=== PATIENT | female | born 1950 | race Caucasian/White ===

== ENCOUNTER → 2016-11-20 | Outpatient (CLI) | payer BC ==
[~2016-11-20] MED LIST: CARDI-OMEGA1000 MG PO; CENTRUM SILVER1 TA2 PO; CEPHALEXIN500 M1 PO; CITRACAL + D 251 TAB PO; DOXYCYCLINE 10100 MG PO; GLUCOSAMINE MSM1 TAB PO; HCTZ12.5TAB PO; HYDROCOT25 MG PO; MEDI-FIRST ASP325 MG PO; PRINZIDE 12.5 M1 TAB PO; SIMVASTATIN40 MG PO; TINACTIN11 TP; ZOCOR 20MG20 MG PO; [UNRECOGNIZED DRUG - OTHER]
== END ==
LOC: MC.RAD 09:55
DX: Z12.31 Encounter for screening mammogram for malignant neoplasm of breast (principal)

== ENCOUNTER → 2018-05-06 | Outpatient (CLI) | payer MEDICARE, OTHER | LOC: MC.RAD 10:40 | DX: Z12.31 Encounter for screening mammogram for malignant neoplasm of breast (principal) ==

== ENCOUNTER → 2018-06-10 | Outpatient (CLI) | payer MEDICARE, OTHER ==
[~2018-06-10] MED LIST changes: +ASPIRIN E.C. 8181 MG PO; +CALCIUM 600/VIT1 CAP PO; -CITRACAL + D 251 TAB PO; +GLUCOSAMINE & C1 CA2 PO; +NATURE'S BLEND500 M1 PO
== END ==
LOC: COL.RAD 07:55
DX: C64.1 Malignant neoplasm of right kidney, except renal pelvis (principal); R91.8 Other nonspecific abnormal finding of lung field
CPT/HCPCS: Q9967

== ENCOUNTER → 2018-06-14 | Outpatient (CLI) | payer MEDICARE, OTHER ==
[2018-06-14] VITALS (9 sets, daily range): BP systolic 115–158; BP diastolic 64–87; PULSE 99–108
[~2018-06-14] VITALS: Ht 165.1 cm; Wt 87.0 kg
== END ==
LOC: COL.RAD 09:16
DX: C64.1 Malignant neoplasm of right kidney, except renal pelvis (principal); R91.8 Other nonspecific abnormal finding of lung field
CPT/HCPCS: A9585

== ENCOUNTER → 2018-09-14 | Outpatient (CLI) | payer MEDICARE, OTHER | LOC: COL.RAD 09:39 | DX: C64.1 Malignant neoplasm of right kidney, except renal pelvis (principal); C79.51 Secondary malignant neoplasm of bone; R59.0 Localized enlarged lymph nodes; R91.8 Other nonspecific abnormal finding of lung field | CPT/HCPCS: Q9967 ==

== ENCOUNTER → 2018-12-06 | Outpatient (CLI) | payer MEDICARE, OTHER | LOC: COL.RAD 08:09 | DX: C64.1 Malignant neoplasm of right kidney, except renal pelvis (principal); C79.51 Secondary malignant neoplasm of bone; E11.9 Type 2 diabetes mellitus without complications; R59.0 Localized enlarged lymph nodes; R91.8 Other nonspecific abnormal finding of lung field; Z90.710 Acquired absence of both cervix and uterus | CPT/HCPCS: Q9967 ==

== ENCOUNTER → 2019-02-28 | Outpatient (CLI) | payer MEDICARE, OTHER | LOC: COL.RAD 08:40 | DX: C64.1 Malignant neoplasm of right kidney, except renal pelvis (principal); C78.02 Secondary malignant neoplasm of left lung; C79.51 Secondary malignant neoplasm of bone; E11.9 Type 2 diabetes mellitus without complications; N28.89 Other specified disorders of kidney and ureter; Z90.710 Acquired absence of both cervix and uterus | CPT/HCPCS: Q9967 ==

== ENCOUNTER 2019-06-14 13:11 | Inpatient (IN) | payer MEDICARE, OTHER ==
[~2019-06-14] VITALS: Ht 165.1 cm; Wt 73.1 kg
[2019-06-14] MEDS ORDERED: TYLEINFANT PO (16:50)
[2019-06-14] MEDS ORDERED: IRON TABLETS325 MG PO (16:51)
[2019-06-14] MEDS ORDERED: GLUCOSAMINE & C1 CA2 PO (16:52)
[2019-06-14] MEDS ORDERED: OMEGA-3 1000 MG1 CAP PO (16:52)
[2019-06-14] MEDS ORDERED: PRINIVIL2.5 MG PO (16:53)
[2019-06-14] MEDS ORDERED: IRON18 MG1 PO (16:53)
[2019-06-14] MEDS ORDERED: COMPAZINE 110 MG/TAB PO (16:54)
[2019-06-14] MEDS ORDERED: SUPPORT 240 ML240 ML PO (16:54)
[2019-06-14] MEDS ORDERED: TRIAMCINOLONE A15 G3 TP (16:55)
[2019-06-14] MEDS ORDERED: SYNTHROID 0.10.15 MG PO (16:56)
[2019-06-14] MEDS ORDERED: PRINZIDE 12.5 M1 TAB PO (16:57)
[2019-06-14] MEDS ORDERED: CABOMETYX40 MG PO (16:59)
[2019-06-14] MEDS ORDERED: CENTRUM SILVER1 TAB PO (17:03)
[2019-06-14 17:45] VITALS: BP 115/6; PULSE 128; TEMP 98
[2019-06-14 17:53] VITALS: BP 115/52; PULSE 126; TEMP 98
--- NOTE | 2019-06-14 19:15 | NUR ---
Patient report received from DORIAN Marino at bedside. IV started and labs drawn at this time by day shift nurse. 20g L FA IV, NS started at 100 ml. Patient is on 2.0 L oxygen via NC, sats are in low 90's. Patient denies pain or n/v. Alert and oriented, neuro check WNL. Lungs are coarse in upper lobes, diminished in lower lobes. No other needs observed/reported.
[2019-06-14 19:25] LABS: HEMATOCRIT 38.8 % (37.0-47.0); HEMOGLOBIN 12.1 g/dl (12.5-16.0); MEAN CELL VOLUME 82 fl (80.0-100.0); MEAN CORPUSCULAR HEMOGLOBIN 25 pg (27.0-31.0); MEAN CORPUSCULAR HGB CONC 31 g/dl (33.0-37.0); PLATELET COUNT 538 K/mm3 (130-400); RED BLOOD COUNT 4.76 M/mm3 (4.10-5.30); REDCELL DISTRIBUTION WIDTH-CV 18.8 % (11.5-14.5)
[2019-06-14 19:26] LABS: INR 1.2 (0.8-3.0); PROTHROMBIN TIME 14.1 SECONDS (9.7-12.8)
[2019-06-14 19:28] LABS: PARTIAL THROMBOPLASTIN TIME 30.5 SECONDS (26.0-37.0)
[2019-06-14 19:38] LABS: CALCIUM 9.3 mg/dL (8.4-10.2); CREATININE, serum 1.29 (0.52-1.25); POTASSIUM 4.1 mmol/L (3.4-5.0)
[2019-06-14 19:54] LABS: TROPONIN-I 0.175 ng/mL (0.000-0.035)
[2019-06-14 20:11] LABS: ANISOCYTOSIS 3+; BAND 1 % (0-10); LYMPHOCYTE 18 % (20.0-51.0); METAMYELOCYTE 1 % (0-0); NEUTROPHILS 76 % (42.0-75.2); PLATELET ESTIMATE INCREASED (NORMAL)
[2019-06-14 21:52] VITALS: BP 155/70; PULSE 131; TEMP 97.5
[2019-06-14 22:29] LABS: COLLECTION METHOD CLEAN CATCH
[2019-06-14 22:39] LABS: MUCOUS Present /lpf; PH 5 (5-8); URINE APPEARANCE Cloudy; URINE BACTERIA Rare /hpf; URINE BILIRUBIN Negative (NEGATIVE); URINE BLOOD Negative (NEGATIVE); URINE COLOR Amber; URINE GLUCOSE Negative (NEGATIVE); URINE KETONE Negative (NEGATIVE); URINE LEUKOCYTE ESTERASE 2+ (NEGATIVE); URINE NITRATE Negative (NEGATIVE); URINE PROTEIN(semi-quant) Negative (NEGATIVE)
[2019-06-14 23:13] LABS: ARTERIAL BLD GAS O2 SATURATION 95.1 % (92-100); ARTERIAL BLOOD GAS BASE EXCESS -0.7 (-2-2); ARTERIAL BLOOD GAS HCO3 26.3 meq/L (22-26); ARTERIAL BLOOD GAS PCO2 54.1 mmHg (35-45); ARTERIAL BLOOD GAS PO2 83.8 mmHg (80-100); ARTERIAL BLOOD GAS pH 7.31 (7.35-7.45)
[2019-06-14 23:21] LABS: ALANINE AMINOTRANSFERASE < 6 U/L (9-52); ALBUMIN 3.1 gm/dL (3.5-5.0); ALKALINE PHOSPHATASE 86 U/L (50-136); AST,SGOT 31 U/L (15-37); TOTAL PROTEIN 6.5 gm/dL (6.4-8.2)
[2019-06-14 23:23] LABS: SALICYLATE < 1.0 mg/dL
[2019-06-14 23:34] LABS: BILIRUBIN,DIRECT 0.1 mg/dL (0.0-0.4); BILIRUBIN,TOTAL 0.2 mg/dL (0.0-1.0)
[2019-06-14 23:37] LABS: TROPONIN-I 3 HR POST INITIAL 0.152 ng/mL (0.000-0.034)
--- NOTE | 2019-06-14 23:40 | NUR ---
Patient vitals checked, saturations were low on 2 L. Increased to 5 L NC, sats 91%. Heart rate sinus Tach in the 130s. Provider notified, came to bedside to see patient. Bipap ordered as well as DNR.
[2019-06-14 23:53] VITALS: BP 116/57; PULSE 126
[2019-06-15] VITALS (516 sets, daily range): BP systolic 87–144; BP diastolic 54–102; PULSE 67–155; TEMP 97.7–98; O2SAT 74–100
[2019-06-15 02:53] LABS: ARTERIAL BLD GAS O2 SATURATION 97.4 % (92-100); ARTERIAL BLD GAS TCO2 CT 28.1; ARTERIAL BLOOD GAS BASE EXCESS 1.2 (-2-2); ARTERIAL BLOOD GAS HCO3 26.7 meq/L (22-26); ARTERIAL BLOOD GAS PCO2 45.7 mmHg (35-45); ARTERIAL BLOOD GAS PO2 93.8 mmHg (80-100); ARTERIAL BLOOD GAS pH 7.38 (7.35-7.45)
--- NOTE | 2019-06-15 04:05 | NUR ---
This nurse called to floor for patient in a-fib with RVR and respiratory distress, please see critical access team record for details. Patient transported down to ICU. ANDRZEJ Nicolas in room, daughter notified of change in status.
--- NOTE | 2019-06-15 04:15 | NUR ---
Tele reports patient was in bigeminy, then a-fib with RVR. Patient reports having sudden onset of SOA even with Bipap in place. Patient could not tolerate Bipap any more, replaced with 15 ml oxymask, sats 88%. Provider at bedside, cardizem bolus given and drip initiated by ICU nurse. Patient to be transferred as soon as a room is ready.
[2019-06-15 04:31] LABS: ARTERIAL BLD GAS O2 SATURATION 86.1 % (92-100); ARTERIAL BLD GAS TCO2 CT 27.9; ARTERIAL BLOOD GAS BASE EXCESS -3.7 (-2-2); ARTERIAL BLOOD GAS HCO3 25.7 meq/L (22-26); ARTERIAL BLOOD GAS PO2 65.3 mmHg (80-100); ARTERIAL BLOOD GAS pH 7.19 (7.35-7.45)
[2019-06-15 04:32] LABS: ARTERIAL BLOOD GAS PCO2 69.7 mmHg (35-45)
--- NOTE | 2019-06-15 04:45 | NUR ---
Patient transferred to ICU bed 7 for A-Fib with RVR. Report given to DORIAN Guadarrama at bedside. Cardizem bolus and drip initiated prior to transfer by ICU nurse. Bipap in place at this time.
[2019-06-15 04:46] LABS: HEMATOCRIT 37.4 % (37.0-47.0); HEMOGLOBIN 11.6 g/dl (12.5-16.0); MEAN CELL VOLUME 83 fl (80.0-100.0); MEAN CORPUSCULAR HEMOGLOBIN 26 pg (27.0-31.0); MEAN CORPUSCULAR HGB CONC 31 g/dl (33.0-37.0); MEAN PLATELET VOLUME 8.5 fl (7.4-10.4); PLATELET COUNT 611 K/mm3 (130-400); RED BLOOD COUNT 4.51 M/mm3 (4.10-5.30); REDCELL DISTRIBUTION WIDTH-CV 18.7 % (11.5-14.5)
[2019-06-15 04:57] LABS: ALBUMIN 3.2 gm/dL (3.5-5.0); BILIRUBIN,TOTAL 0.2 mg/dL (0.0-1.0); CALCIUM 8.1 mg/dL (8.4-10.2); CREATININE, serum 0.81 (0.52-1.25); MAGNESIUM 1.9 mg/dL (1.6-2.3); PHOSPHOROUS 4.4 mg/dL (2.5-4.5); POTASSIUM 4.2 mmol/L (3.4-5.0); TOTAL PROTEIN 6.6 gm/dL (6.4-8.2)
[2019-06-15 05:03] LABS: ANISOCYTOSIS 1+; BAND 4 % (0-10); EOSINOPHIL 1 % (0-4); LYMPHOCYTE 17 % (20.0-51.0); NEUTROPHILS 65 % (42.0-75.2); PLATELET ESTIMATE INCREASED (NORMAL)
[2019-06-15 06:11] LABS: ARTERIAL BLD GAS O2 SATURATION 99.9 % (92-100); ARTERIAL BLD GAS TCO2 CT 25.3; ARTERIAL BLOOD GAS HCO3 24.1 meq/L (22-26); ARTERIAL BLOOD GAS PCO2 41.6 mmHg (35-45); ARTERIAL BLOOD GAS PO2 196.2 mmHg (80-100); ARTERIAL BLOOD GAS pH 7.38 (7.35-7.45)
--- NOTE | 2019-06-15 06:45 | NUR ---
Vancomycin Initial Dosing Pharmacy Note Ordering provider: Bismark Owens MD Indication/duration: possible brain abscess, 7 days Relevant comorbidities: metastatic renal cell carcinoma with lung, bone, lymph node, and brain metastases LABS: SCr 0.81<-1.29, CrCl~59, GFR 71 Recommendation: Will start Vancomycin 1.25 gm IV q12h. Pharmacy will check a Vancomycin trough prior to the 4th total dose on 06/16/19 and will continue to monitor. Loading dose: 1.5 grams Maintenance dose: 1.25 grams every 12 hours Trough goal: 15-20 ug/mL
--- NOTE | 2019-06-15 13:58 | NUR ---
The patient is on a Bi-PAP. CLOTH SHRINKING MACHINE OPERATOR student contacted the patient's daughter, Dang for intake. The patient lives in [place] with her daughter. The patient has a walker and is independent with ADLs. The patient's PCP is Dr. Sandoval and patient receives medications from [facility] in [place]. The patient does not have advanced directives in the EMR but Dang reports they are completed and will fax them to the ICU fax number. client services associate will continue to follow to ensure a safe discharge.
--- NOTE | 2019-06-15 15:13 | NUR ---
PUBLIC HEALTH REGISTRAR student received a copy of advanced directives, DPOA-HC and Declaration from the patient's civil litigation attorney, Vern Alba from [place]. The DPOA-HC appoints the patient's but he unexpectedly in May. The next designees are Sravanthi Mi, Dang Kay, Lacie Scott, and Erasto Kay. The copy was placed in the patient's chart. environmental services technician will continue to follow.
--- NOTE | 2019-06-15 19:32 | NUR ---
Assessment completed and charted at this time, please see documentation for details. Patient resting in chair, family at bedside. Patient tolerating AirVo well, will continue to monitor.
--- NOTE | 2019-06-15 21:55 | NUR ---
Patient has had 2x short runs of Afib RVR and returning to sinus tachycardia after a couple of minutes. Discussed with ANDRZEJ Nicolas, decided to place back on cardizem gtt at this time.
[2019-06-16] VITALS (709 sets, daily range): BP systolic 122–134; BP diastolic 70–100; PULSE 104–109; TEMP 97.8; O2SAT 76–100
[2019-06-16 05:03] LABS: GRAN # 18.2 (1.4-6.5); GRAN % 88.2 % (42.2-75.2); HEMOGLOBIN 10.6 g/dl (12.5-16.0); LYMPH # 0.9 (1.2-3.4); LYMPH % 4.5 % (20.0-51.0); MEAN CELL VOLUME 82 fl (80.0-100.0); MEAN CORPUSCULAR HEMOGLOBIN 26 pg (27.0-31.0); MEAN CORPUSCULAR HGB CONC 32 g/dl (33.0-37.0); MEAN PLATELET VOLUME 8.3 fl (7.4-10.4); MONO # 1.3 (0.1-0.6); MONO % 6.4 % (1.7-9.3); REDCELL DISTRIBUTION WIDTH-CV 18.7 % (11.5-14.5)
[2019-06-16 05:04] LABS: HEMATOCRIT 33.7 % (37.0-47.0); PLATELET COUNT 492 K/mm3 (130-400)
[2019-06-16 05:13] LABS: ALBUMIN 3.1 gm/dL (3.5-5.0); BILIRUBIN,TOTAL 0.3 mg/dL (0.0-1.0); CALCIUM 7.9 mg/dL (8.4-10.2); CREATININE, serum 0.51 (0.52-1.25); POTASSIUM 3.7 mmol/L (3.4-5.0); TOTAL PROTEIN 6.5 gm/dL (6.4-8.2)
--- NOTE | 2019-06-16 07:15 | NUR ---
Report received from Thierry ALARCON and care resumed. Dr Swift in to see pt at this time.
--- NOTE | 2019-06-16 07:58 | NUR ---
Dr Godinez in to see pt at this time.
--- NOTE | 2019-06-16 16:27 | NUR ---
The patient and her family are agreeable to go on hospice at a residential and their first choice is [facility] and second choice is [facility]. Referrals were faxed and awaiting responses.
--- NOTE | 2019-06-16 16:44 | NUR ---
Pt taken off airvo at this time and placed on OM at 6L. Pt's daughters at bedside. PRN meds given. Will continue to follow.
--- NOTE | 2019-06-16 17:38 | NUR ---
I met with family of two daughters at bedside immediately following Dr Brown' rounding with treatment team. Sheridan parra participated in this conversation and is recognizing that her condition is worsening despite treatment and her cancer has spread significantly. She is not wanting to pursue further treatment and would like to proceed with hospice care. Initially she felt she wanted to be at home but after further thought and discussion with her daughter, they are now looking at hospice services in a nursing facility, [facility]) or [facility]. Veronica the protective services social worker, has made contact with these facilities and will follow. Pt is being made comfort care and will move to the floor later on. Support provided to patient and her daughters.
--- NOTE | 2019-06-16 17:49 | NUR ---
Pt appears to be resting comfortably at this time. Will continue to follow.
--- NOTE | 2019-06-16 19:01 | NUR ---
Report given to Augusta ALARCON and are transfered.
--- NOTE | 2019-06-16 19:10 | NUR ---
Receive report from DORIAN Caruso.
--- NOTE | 2019-06-16 20:00 | NUR ---
Patient continues on comfort care and is resting quietly in bed at this time. Patient remains on telemetry and oxygen saturation is being monitored, however, all other intrusive monitoring equipment have been removed. Patient is on 1L of oxygen via oxymask and tolerating well. Patient is currently breathing quietly with no evidence of pain or discomfort. Daughter Sanjana is at the bedside. Will continue to monitor.
--- NOTE | 2019-06-16 22:15 | NUR ---
Patient has become more alert and is attempting to get out of bed. Patient is diaphoretic and her breathing is labored. PRN medication administered to promote patient comfort.
[2019-06-17] VITALS (9 sets, daily range): O2SAT 45–100
--- NOTE | 2019-06-17 08:15 | NUR ---
PT RESTING IN BED, ASSUMED PAIN SECONDARY TO MOANING, INTERMITTENTLY AND WHEN TOUCHED. SPOT CHECK [id number]%. WILL CONTINUE TO KEEP PT COMFORTABLE, AND CONTACT PROVIDERS AND FAMILY WITH ANY CHANGES.
--- NOTE | 2019-06-17 10:30 | NUR ---
Pt noted to lose HR and Resperations @ 10:18, MD. Brown at bedside to pronounce. Family at bedside and house and social work made aware.
--- NOTE | 2019-06-17 10:41 | NUR ---
HARLEYN notified, referral # [id number].
--- NOTE | 2019-06-17 12:01 | NUR ---
[facility], pt head placed at 30 degrees, 2 drops of saline placed bilateral eye, and ice pack placed over eyes. Awaiting call back from eye back for pt transfer to home.
--- NOTE | 2019-06-17 12:33 | NUR ---
THE HOME CAME TO ENROLLMENT SERVICES DEAN PT, RN EXPLAINED THAT WE UNABLE TO RELEASE PT BODY BECAUSE WE ARE AWAITING CALL BACK FROM [facility] WITH FURTHER INSTRUCTIONS.
--- NOTE | 2019-06-17 12:45 | NUR ---
Tailor'S Aide offered prayers with family after patient passed.
--- NOTE | 2019-06-17 17:05 | NUR ---
[facility]aving Site currently at bedside, [facility] was called and updated on time of pickling drum operator.
--- NOTE | 2019-06-17 18:12 | NUR ---
Pt d\c'ed to home.
[2019-06-18] VITALS: O2SAT 99
== END 2019-06-17 18:12 | disposition expired | DRG 64 ==
LOC: MEDICAL 13:11 → ICU 16:06 → MEDICAL 06-15 04:29 → ICU 06-15 04:29
PROVIDERS: Nurse Practitioner Family; Physician Assistant; ADMIT Hospitalist
PROC: 5A09457 Assistance with Respiratory Ventilation, 24-96 Consecutive Hours, Continuous Positive Airway Pressure (ICD-10-PCS; principal; 2019-06-14)
PROC: 02HV33Z Insertion of Infusion Device into Superior Vena Cava, Percutaneous Approach (ICD-10-PCS; 2019-06-15)
DX: I63.9 Cerebral infarction, unspecified (principal); J96.02 Acute respiratory failure with hypercapnia; J96.01 Acute respiratory failure with hypoxia; J69.0 Pneumonitis due to inhalation of food and vomit; C79.31 Secondary malignant neoplasm of brain; C64.9 Malignant neoplasm of unspecified kidney, except renal pelvis; E87.2 Acidosis; I47.1 Supraventricular tachycardia; C78.00 Secondary malignant neoplasm of unspecified lung; C77.9 Secondary and unspecified malignant neoplasm of lymph node, unspecified; C79.51 Secondary malignant neoplasm of bone; E03.9 Hypothyroidism, unspecified; I48.91 Unspecified atrial fibrillation; I10 Essential (primary) hypertension; Z90.710 Acquired absence of both cervix and uterus; Z79.82 Long term (current) use of aspirin; Z23 Encounter for immunization
CPT/HCPCS: 99222-AI; 99223-AI; 99232-AI; 99233-AI; 99238; C1751; C1892; J0456; J1815; J2060; J2543; J2920; J3010; J3370; J7030; J7050; Q9967